=== PATIENT | female | born 1945 | race Caucasian/White ===

== ENCOUNTER 2017-11-12 11:02 | Outpatient (CLI) | payer OTHER | END 2017-11-12 17:00 | disposition home or self-care (01) | LOC: TOM 11:02 | DX: R10.84 Generalized abdominal pain (principal); R19.5 Other fecal abnormalities ==

== ENCOUNTER → 2019-04-19 08:50 | Outpatient (CLI) | payer OTHER | END | disposition home or self-care (01) | LOC: LAB 08:50 | DX: E78.2 Mixed hyperlipidemia (principal); C50.211 Malignant neoplasm of upper-inner quadrant of right female breast; I10 Essential (primary) hypertension; I73.89 Other specified peripheral vascular diseases; D50.8 Other iron deficiency anemias; D51.8 Other vitamin B12 deficiency anemias; D51.0 Vitamin B12 deficiency anemia due to intrinsic factor deficiency; D51.1 Vitamin B12 deficiency anemia due to selective vitamin B12 malabsorption with proteinuria; E03.8 Other specified hypothyroidism; E06.3 Autoimmune thyroiditis; R97.0 Elevated carcinoembryonic antigen [CEA]; R97.8 Other abnormal tumor markers ==

== ENCOUNTER 2019-09-22 08:29 | Outpatient (CLI) | payer OTHER | END 2019-09-22 08:44 | disposition home or self-care (01) | LOC: LAB 08:29 | DX: C50.411 Malignant neoplasm of upper-outer quadrant of right female breast (principal); R97.0 Elevated carcinoembryonic antigen [CEA]; R97.8 Other abnormal tumor markers; D50.8 Other iron deficiency anemias; D51.8 Other vitamin B12 deficiency anemias; D57.3 Sickle-cell trait ==

== ENCOUNTER → 2020-06-16 | Outpatient (CLI) | payer OTHER | END | disposition home or self-care (01) | LOC: RX STUDY 07:39 | PROVIDERS: ATTEND Internal Medicine Hematology & Oncology | DX: Z12.11 Encounter for screening for malignant neoplasm of colon (principal); M41.86 Other forms of scoliosis, lumbar region; C50.211 Malignant neoplasm of upper-inner quadrant of right female breast; I10 Essential (primary) hypertension; E78.2 Mixed hyperlipidemia; I73.89 Other specified peripheral vascular diseases; D72.818 Other decreased white blood cell count; N39.0 Urinary tract infection, site not specified; N02.8 Recurrent and persistent hematuria with other morphologic changes; K57.30 Diverticulosis of large intestine without perforation or abscess without bleeding ==

== ENCOUNTER 2020-09-07 06:20 | Day surgery (SDC) | payer OTHER | END 2020-09-07 11:05 | disposition home or self-care (01) | LOC: AMB-ENDOS 06:20 → CIR.AMB 13:45 | PROVIDERS: ATTEND Surgery | DX: K62.89 Other specified diseases of anus and rectum (principal); K62.4 Stenosis of anus and rectum; Z20.828 Contact with and (suspected) exposure to other viral communicable diseases ==

== ENCOUNTER 2020-11-07 09:12 | Inpatient (IN) | payer OTHER ==
[~2020-11-07] VITALS: Ht 157.5 cm; Wt 59.0 kg
[2020-11-07] MEDS ORDERED: PLAVIX75 MG (09:21)
[2020-11-07] MEDS ORDERED: VASOTEC5 MG (09:21)
[2020-11-07] MEDS ORDERED: INTEGRA PLUS C1 EACH (09:21)
[2020-11-07] MEDS ORDERED: [UNRECOGNIZED DRUG - OTHER] (09:22)
[2020-11-07] MEDS ORDERED: CILOSTAZOL50 MG (09:22)
[2020-11-07] MEDS ORDERED: VITAMIN B122500 MCG (09:22)
[2020-11-26] MEDS ORDERED: HYOSCYAMINE0.125 M1 SL (13:12)
[2020-11-26] MEDS ORDERED: ULTRACET PO (13:13)
== END 2020-11-26 16:43 | disposition home or self-care (01) | DRG 330 ==
LOC: ER 09:12 → SURG 11-08 01:03
PROVIDERS: ADMIT Surgery; ATTEND Surgery
PROC: BW21YZZ Computerized Tomography (CT Scan) of Abdomen and Pelvis using Other Contrast (ICD-10-PCS; 2020-11-07)
PROC: 0DQ80ZZ Repair Small Intestine, Open Approach (ICD-10-PCS; 2020-11-08)
PROC: 05H433Z Insertion of Infusion Device into Left Innominate Vein, Percutaneous Approach (ICD-10-PCS; 2020-11-08)
PROC: 30233N1 Transfusion of Nonautologous Red Blood Cells into Peripheral Vein, Percutaneous Approach (ICD-10-PCS; 2020-11-17)
PROC: 0D1B0Z4 Bypass Ileum to Cutaneous, Open Approach (ICD-10-PCS; 2020-11-20)
PROC: 0DTB0ZZ Resection of Ileum, Open Approach (ICD-10-PCS; 2020-11-20)
PROC: 3E0F7SF Introduction of Other Gas into Respiratory Tract, Via Natural or Artificial Opening (ICD-10-PCS; 2020-11-20)
PROC: 0DTP0ZZ Resection of Rectum, Open Approach (ICD-10-PCS; principal; 2020-11-20 11:30)
DX: K56.690 Other partial intestinal obstruction (principal); K57.32 Diverticulitis of large intestine without perforation or abscess without bleeding; N32.1 Vesicointestinal fistula; B37.89 Other sites of candidiasis; E46 Unspecified protein-calorie malnutrition; K57.30 Diverticulosis of large intestine without perforation or abscess without bleeding; K29.60 Other gastritis without bleeding; I10 Essential (primary) hypertension; F43.21 Adjustment disorder with depressed mood; D72.828 Other elevated white blood cell count; R11.2 Nausea with vomiting, unspecified; R10.32 Left lower quadrant pain; Z85.3 Personal history of malignant neoplasm of breast; D63.8 Anemia in other chronic diseases classified elsewhere; K52.89 Other specified noninfective gastroenteritis and colitis; Z20.822 Contact with and (suspected) exposure to COVID-19